=== PATIENT | female | born 1970 | race Caucasian/White ===

== ENCOUNTER 2024-09-10 13:02 | Outpatient (AMB) | payer OTHER, SELFPAY ==
--- NOTE | 2024-09-10 13:05 | A.SPINEOV_ITS ---
Vital Signs 09/10/24 13:08 Height 5 ft 4 in Weight 185 lb BMI 31.8 Intake Visit Reasons: SI Joint Dysfuction Intake Note: Ms. Snider is here today c/o low back pain. MRI Done at [facility] [facility]. Rag Sorter Required: No Allergies No Known Allergies Allergy (Verified 09/10/24 13:08) Physical Exam Vital Signs: BMI result Body Mass Index 31.8 Assessment & Plan Assessment & Plan (1) SI (sacroiliac) joint dysfunction: Code(s): M53.3 - Sacrococcygeal disorders, not elsewhere classified Category: Medical Plan Dear colleague, Thank you for referring Zena to our office today. She is a pleasant 54-year-old female who comes in today for evaluation of bilateral sacroiliitis. She has had SI joint injections in the past on 06/13/2023 which provided 70% relief of pain, and most recently on September 06 which she reports only alleviated about 20% of her pain. She states that her pain is well localized to her low ba ck and does not radiate down her legs. She does report some occasional numbness and tingling in her lower extremities but reports this is her baseline due to diagnosis of multiple sclerosis. She states that her pain is worse when sitting, and better with lying on her side with a pillow between her legs. She also reports that certain positional changes such as getting up out of a car seat exacerbate her pain. She does have a pertinent past medical history of 2 natural childbirths 30 and 25 years ago respectively. She has tried several xdlr-xmj-vnytunj medications in an effort to help mitigate this pain including lidocaine patches, Tylenol, ibuprofen without significant symptom relief. She has tried physical therapy in the past but she would not find was helpful for her. PMH: Multiple sclerosis temporomandibular joint dysfunction, major depression, generalized anxiety, insomnia, plantar fasciitis, heel spurs, chronic fatigue and chronic pain. History of cholecystectomy, bunionectomy, lumpectomy, carpal tunnel release 2016, hiatal hernia repair, gastric sleeve surgery. Social hx: The patient does not smoke, reports recreational cannabis use. Medications: Dimethyl fumarate, gabapentin, vitamin D3, B2, baclofen, escitalopram, magnesium oxide, modafinil. Allergies: NKDA. Physical exam: The patient has 5/5 strength in her upper and lower extremities. She ambulates well without any assistive devices. Her gait is nonantalgic and non spastic. She has no significant sensational deficits on exam. Her reflexes are 2+ intact diffusely. (-) Corrie finger test, (-) Karen's, (-) bilateral straight leg raise, (-) Leon's, (-) clonus. Imaging review: MRI of the pelvis completed at [place] shows mild tendinopathy of the right proximal hamstring. No lumbar MRI completed. Impression: Zena is a pleasant 54-year-old female who comes in today with a chief complaint of longstanding low back pain. She is being actively treated for bilateral SI joint dysfunction by our colleagues in [facility]. She does not have a previous lumbar MRI for review. I did check her [facility] imaging list which only shows several different cervical and thoracic MRIs likely to track her multiple sclerosis progression. Unfortunately, she does not appear to be a good candidate for SI joint fusion at this time. She is had 2 series of injections, 1 providing 70% relief and 1 presenting 20% relief. Typically for insurance approval for SI joint fusion the patient's have to have 3 series of full therapeutic dose injections showing 70% or more relief of pain. Given this, I would like to send her for an MRI of the lumbar spine to evaluate for any nerve impingement that may be contributing to her symptoms. If her MRI does show nerve impingement I will see her back in clinic to discuss potential surgical interventions. If it does not I will call and update her regardless. Thank you for allowing us to care for your patient. The total time spent with this visit with this patient was 45 minutes reviewing history, physical exam, MRI imaging review, and implementation of treatment plan or further diagnostic testing Veto Chavarria MD,PhD [facility] Orders: Orders MR lumbar spine wo con Today M53.3 - Sacrococcygeal disorders, not elsewhere classified Coding Level of Care Code New Pt Level 4 (50176) Diagnoses SI (sacroiliac) joint dysfunction M53.3
[2024-09-10 13:08] VITALS: BMI 31.8
--- OUTSIDE RECORDS SUMMARY | 2024-09-10 14:21 | XMS_ITS ---
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 Generated for Luna kraft/Tesha/eTransmitting on:?09/10/2024 02:21 PM EDT
--- OUTSIDE RECORDS SUMMARY | 2024-09-10 14:21 | XMS_ITS | Patient Health Record ---
Author Organization [facility] Address [address] [place] [address] Care Team Providers Care Machine Sander Name Role Phone Cintia Garcia Unavailable [phone] Reason For Referral No Information Encounters Encounter Location Date Provider [facility] [address] [place] [address] 07/10/2024 Cintia Garcia [facility] [address] [place] [address] 08/14/2024 Cintia Garcia Plan Of Treatment No Information Insurance Providers Payer Name Payer Address Payer Phone Subscriber Number Group Number Insured Name Patient Relationship to Insured Coverage Start Date Coverage End Date [facility] [place] [employer] Claims [address] [place] [id number] Zena Snider Self - patient is the insured
--- OUTSIDE RECORDS SUMMARY | 2024-09-10 14:22 | XMS_ITS | Data Portability ---
Author Organization [place] - [facility],, SUSY JIMENEZ MD Address [address] [facility] [address] [place] [address] Care Team Providers Care Drywaller Name Role Phone SEE JONES Primary Care Provider [phone] Assessment No assessment recorded. Plan of Treatment Reminders Order Date Submit Date Provider Last Modified By Organization Details Last Modified Time Details Appointments None recorded. Lab pap test, thinprep, cervical [address] [facility], [address], [place], [address], 8 15:14:12 fecal occult blood, stool 2017 018 MAURA In-Office Order, Internal Use Only DO Not Attach Compendium DO Not Attach Compendium, Do Not Delete/merge, [id number] 8 15:51:11 biopsy, endometri al 2016 017 MAURA [facility] (Centralized Electronic Ordering - All Locations), Patient Can Go To The Location Of Their Choice, [id number] 7 08:30:52 pap test, thinprep, cervical 2016 017 MAURA [facility] (Centralized Electronic Ordering - All Locations), Patient Can Go To The Location Of Their Choice, [id number] 7 13:30:44 fecal occult blood, stool 2016 017 [email or web address] 1 In-Office Order, Internal Use Only DO Not Attach Compendium DO Not Attach Compendium, Do Not Delete/merge, [id number] 7 13:49:01 pap test, thinprep, cervical 2015 016 [place] [facility] (Centralized Electronic Ordering - All Locations), Patient Can Go To The Location Of Their Choice, [id number] 6 12:34:35 fecal occult blood, stool 2015 016 [email or web address] 1 In-Office Order, Internal Use Only DO Not Attach Compendium DO Not Attach Compendium, Do Not Delete/merge, [id number] 6 14:35:08 pap test, thinprep, cervical 2014 015 [facility], Cytopathology Service, [address] [place], [address], 5 11:31:51 chlamydia sp, culture, unspecifi ed specimen 2014 015 [facility], Cytopathology Service, [address] [place], [address], 5 07:33:35 NG DNA, PCR, genital 2014 015 [facility] [address] [place], [address], 5 08:01:09 CBC w/ auto diff 2014 015 [employer] [facility], [address] [place], [address], 5 08:26:00 testoster one, free + total, serum 2014 015 [facility], [address] [place], [address], 5 08:01:09 TSH, serum or plasma 2014 015 [employer] [facility], [address] [place], [address], 5 08:26:00 FSH (follicle -stimulat ing hormone), serum 2014 015 [employer] [facility], [address] [place], [address], 5 08:26:01 estradiol , serum 2014 015 [employer], [address] [place], [address], 5 08:26:00 fecal occult blood, stool 2014 015 [employer] In-Office Order, Internal Use Only DO Not Attach Compendium DO Not Attach Compendium, Do Not Delete/merge, [id number] 5 08:26:00 Referral None recorded. Procedures biopsy, endometri um (PROC) 2016 017 MAURA In-Office Order, Internal Use Only DO Not Attach Compendium DO Not Attach Compendium, Do Not Delete/merge, [id number] 7 15:44:18 Surgeries None recorded. Imaging MAMMO, screening , digital, bilateral 2017 018 [facility], [address], [place], [address], 9 07:55:43 MAMMO, screening , digital, bilateral 2016 017 [facility], [address], [address], [place], [address], 8 07:43:47 US, pelvis, transabdo danny + transvagi nal - 2 months of midline suprapubi c cramping pain. Prior history of breast cancer, presently in chemopaus e. Please assess for polyp or thickenin g of endometri um. [address] [facility], [address], [address], [place], [address], 7 15:32:45 US, liver - elevated LFT. PAtient has prior history of breast cancer, on Tamoxifen . Also on Avonex, meds for MS. Prior cholecyst ectomy. 2016 017 [email or web address] [facility], [address], [address], [place], [address], 7 07:35:06 MAMMO, screening , digital, bilateral [address] [facility], [address], [address], [place], [address], 7 11:05:50 ultrasoun d, breast - 8 mm cystic density right breast at the 8 o'clock 5 cm from nipple 2014 015 [email or web address] [facility], [address], [address], [place], [address], 5 07:24:12 MAMMO, diagnosti c, digital, bilateral - 8 mm cystic density right breast at the 8 o'clock 5 cm from nipple [address] [facility], [address], [address], [place], [address], 5 13:45:14 Medication Orders None recorded. Patient TargetsNo targets recorded. Patient Instructions Encounter Date Encounter Id Patient Instructions Last Modified By Organization Details Last Modified Time 09/06/2014 [id number] secondary amenorrhea: care instructions [email or web address] Not available 09/09/2014 08:26:00 LPS 08/20=Negativ e (per pt), Mammo 02/18@ Edna She is here as a new patient, for annual exam.? ? ? She has had amenorrhea for the past two years. She had her last menses in 02/2013, she had one day of spotting in 2013 and one day of spotting earlier this year, , she does have monthly cramping discomfort, but no bleeding. Menses used to be regular every month until 2012. She has MS and takes a weekly injection, it is working well. She is from her son's father and is now in a same gender relationship, is happy and content with her partner. She saw Dr. Teran recently, for incontinence, pressure, constantly voiding and can't empty my bladder.. She has 2 years of amenorrhea, check cbc, tsh, testosterone total and free, FSH and estradiol to see if premature ovarian failure or not, and then manage as appropriate.? ? ? Issues discussed, she is aware. She has not had a mammo since 02/2013, she has an 8 mm density? ? ?in the? ? ?right breast, 8 mm cystic density right breast at the 8 o'clock 5 cm from nipple, will send for right breast sonogram and also bilateral digital diagnostic mammogram, and follow up as appropriate. She appears to be doing well. She is advised to get 1500 mg of calcium daily into her diet and supplements combined. There is a health benefit with adequate vitamin D supplementation to at least 400 units daily, daily aerobic exercise of 30 minutes, and stress reduction. Monthly self breast exam was taught, and stressed, and is advised to call if she discovers any new mass in the breast. ? ? ? Seat belt use for herself and passengers are advised. There are significant health benefits of becoming and remainig fit, with an optimal BMI. There is a potential reduction in chronic discomfort, diminished risks of hypertension, diabetes, and heart disease with the proper weight management. With a recommended BMI there can be improved mobility as she ages. Strategies to reach and maintain her target weight were discussed in detail. [email or web address] Not available 09/09/2014 08:26:01 09/23/2015 [id number] She is here for annual exam.? ? ? Last year she was seen as a new patient and a right breast mass was found, tesing showed it was a cancer and she had lumpectomy and chemo and RTx, last September. She had been referred here by Dr. Teran for routine care. She had Dr. Kirstin Dempsey as her surgeon. Stage 1 grade 3. She is BRCA negative. Unfortunately we did not receive any records for review and so all this is based on patient history. She did not have a flare of her MS, and one of her chemo meds treats MS and so she was off Avonex for a year, now back on. She is in a same gender relationship, supportive. She is presently ILIA. She is not having menses, is in chemopause, although she had relative amenorrhea prior to this, for a year or two. She appears to be doing well. She is advised to get 1500 mg of calcium daily into her diet and supplements combined. There is a health benefit with adequate vitamin D supplementation to at least 400 units daily, daily aerobic exercise of 30 minutes, and stress reduction. Monthly self breast exam was taught, and stressed, and is advised to call if she discovers any new mass in the breast. ? ? ? Seat belt use for herself and passengers are advised. There are significant health benefits of becoming and remainig fit, with an optimal BMI. There is a potential reduction in chronic discomfort, diminished risks of hypertension, diabetes, and heart disease with the proper weight management. With a recommended BMI there can be improved mobility as she ages. Strategies to reach and maintain her target weight were discussed in detail. We had a long discussion about issues of mortality, cancer survivorship, etc. This has been a tough year. She still dwells on the thought that this was a grade 3 lesion. She has not seen her therapist in a year. Her 15 year old son has been acting out, nearly flunked, stays out late, is belligerent.? ? ?We discussed that it would be great if she went back to see? ? ?her therapist? ? ?as she likes their talks, she will call today.? ? ? Also discussed the benefits of joining a survivors' group. Her LFTs are elevated, her neurologist had checked them, as her MS meds can cause this, she needs to call her PCP to let her know, she will call today. We had a long discussion about chemopause and whether her menses might return or not. Also we discussed issues of decreased vaginal lubriaction and libido, and remedies discussed. All questions answered. Not available 09/23/2015 14:35:08 10/19/2016 [id number] self breast exam education [email or web address] Not available 10/19/2016 15:17:13 She is here for annual exam, is doing well. She has a past history of breast cancer in 10/02/2014, She has had a right hip pain for the past months, she has seen her PCP and is getting a bone scan soon. She also recently saw her neurologist for her MS and he did liver function tests and advised her they are elevated, she is to have a sonogram of the liver soon. She noted midline pelvic cramping pain off and on for two months, suprapubic. She is in chemopause since 2014. She is taking Tamoxifen. Note from last year: She is here for annual exam. Last year she was seen as a new patient and a breast mass was found, tesing showed it was a cancer and she had lumpectomy and chemo and RTx, last September. She had been referred here by Dr. Teran for routine care. She had Dr. Kirstin Dempsey as her surgeon. Stage 1 grade 3. She is BRCA negative. She is in a same gender relationship, supportive. She is presently ILIA. We discussed that her pelvic cramping could be related to her body resolving chemopause, however she could also have a polyp within the endometrial cavity. Check pelvic sonogram. She had recently elevated LFT which could be related to MS meds, or weekly NSAID use, however with her prior history of breast cancer needs sonogram, one is ordered. Her PCP's office has been working since last week to get it set but she has not heard back yet so we just scheduled it for expediency. Also discussed possible use of milk thistle, she should run it by her PCP and oncologist first. She will follow up [facility] PCP concerning hip pain. She is aware that with hip pain and elevated LFT there is some concern about metastatic disease, she will follow up. She appears to be doing well. She is advised to get 1500 mg of calcium daily into her diet and supplements combined. There is a health benefit with adequate vitamin D supplementation to at least 400 units daily, daily aerobic exercise of 30 minutes, and stress reduction. Monthly self breast exam was taught, and stressed, and is advised to call if she discovers any new mass in the breast. Seat belt use for herself and passengers are advised. There are significant health benefits of becoming and remainig fit, with an optimal BMI. There is a potential reduction in chronic discomfort, diminished risks of hypertension, diabetes, and heart disease with the proper weight management. With a recommended BMI there can be improved mobility as she ages. Strategies to reach and maintain her target weight were discussed in detail. Not available 10/19/2016 15:13:23 11/25/2016 [id number] postmenopausal bleeding information [email or web address] Not available 11/25/2016 15:54:45 endometrial biop sy: about this test [email or web address] Not available 11/25/2016 15:54:45 She is here for emb to assess thickened endometrium of 8 mm in postmenopausal (chemopause) woman on sonogram. the test was done because of pelvic cramping pain. Note from last visit: She is here for annual exam, is doing well. She has a past history of breast cancer in 10/02/2014, She has had a right hip pain for the past months, she has seen her PCP and is getting a bone scan soon. She also recently saw her neurologist for her MS and he did liver function tests and advised her they are elevated, she is to have a sonogram of the liver soon. She noted midline pelvic cramping pain off and on for two months, suprapubic. She is in chemopause since 2014. She is taking Tamoxifen. She tolerated emb well, adequate sample, await results. Not available 11/25/2016 15:33:59 11/15/2017 [id number] multiple scleros is (MS): care instructions Not available 11/15/2017 15:12:00 She had a sonogr am showing an 8 mm endometrium last year, had an emb that showed atrophic endometrium, she has had no spotting. She still has occasional cramping off and on. She has MS, and a past history of breast cancer. Seh has not had a period since 2012, she had labs in 09/2014 that showed elevated estrogen and supressed FSH, she was given a progestin challenge test but did not have withdrawl bleeding. The emb in 2017 was atrophic, however. She is still takign Tamoxifen. Note from 2017: She is here for annual exam, is doing well. She has a past history of breast cancer in 10/02/2014, She has had a right hip pain for the past months, she has seen her PCP and is getting a bone scan soon. She also recently saw her neurologist for her MS and he did liver function tests and advised her they are elevated, she is to have a sonogram of the liver soon. She noted midline pelvic cramping pain off and on for two months, suprapubic. She is in chemopause since 2014. She is taking Tamoxifen. She appears to be doing well. We discussed that if they plan to switch to Arimidex after 5 years of tamoxifen then we should check FSH and estradiol first, this was explained and she understands. She is advised to get 1500 mg of calcium daily into her diet and supplements combined. We discussed the benefits of adequate vitamin D supplementation to at least 400 units daily, daily aerobic exercise of 30 minutes, and stress reduction. Monthly self breast exam was taught, and stressed, and is advised to call if she discovers any new mass in the breast. Seat belt use for herself and passengers advised. The significant health benefits of becoming and remainig fit, with an optimal BMI, were also discussed. We discussed the potential reduction in chronic discomfort, the diminished risks of hypertension, diabetes, and heart disease with the proper weight management, and improved mobility as she ages. Strategies to reach and maintain her target weight wer discussed in detail, all questions answered. Not available 11/15/2017 15:30:28 Reason for Referral None Reported. Results Created Date Observation Date Name Description Value Unit Range Abnormal Flag Note LastModifiedBy Organization Detail LastModifiedTime 10/20/1910/19/2016 fecal occul t blood , stool Occult Blood negati ve Not Available In-Office Order Internal Use Only DO Not Attach Compendium DO Not Attach Compendium, Do Not Delete/merge, [id number] 10/19/2016 13:23:40 09/23/19 16 09/23/2015 fecal occul t blood , stool Occult Blood negati ve Not Available In-Office Order Internal Use Only DO Not Attach Compendium DO Not Attach Compendium, Do Not Delete/merge, [id number] 09/23/2015 13:38:20 09/07/1909/06/2014 fecal occul t blood , stool Occult Blood negati ve Not Available In-Office Order Internal Use Only DO Not Attach Compendium DO Not Attach Compendium, Do Not Delete/merge, [id number] 09/06/2014 08:53:56 09/07/1909/06/2014 CBC w/ auto diff comments [facility] [address] [place] [address] [phone] Not Available [facility] [address] [place], [address], 09/07/2014 04:43:16 09/07/1909/06/2014 CBC w/ auto diff WBC 8.2 x10-3 4.8-10 .8 Not Available [facility] [address] [place], [address], 09/07/2014 04:43:16 09/07/1909/06/2014 CBC w/ auto diff RBC 4.5 x10-6 3.8-4. 8 Not Available [facility] [address] [place], [address], 09/07/2014 04:43:16 09/07/1909/06/2014 CBC w/ auto diff hemoglobin 12.4 g/dL 11.5-1 6.0 Not Available [facility] [address] [place], [address], 09/07/2014 04:43:16 09/07/1909/06/2014 CBC w/ auto diff hematocrit 39.0 % 35-47 Not Available [facility] [address] [place], [address], 09/07/2014 04:43:16 09/07/1909/06/2014 CBC w/ auto diff MCV 86.3 fL 79-98 Not Available [facility] [address] [place], [address], 09/07/2014 04:43:16 09/07/1909/06/2014 CBC w/ auto diff MCH 27.4 pg 27-32 Not Available [facility] [address] [place], [address], 09/07/2014 04:43:16 09/07/1909/06/2014 CBC w/ auto diff MCHC 31.8 g/dL 32-37 low Not Available [facility] [address] [place], [address], 09/07/2014 04:43:16 09/07/1909/06/2014 CBC w/ auto diff RDW 14.9 % 11-15 Not Available [facility] [address] [place], [address], 09/07/2014 04:43:16 09/07/1909/06/2014 CBC w/ auto diff plt count 363 x10-3 130-40 0 Not Available [facility] [address] [place], [address], 09/07/2014 04:43:16 09/07/1909/06/2014 CBC w/ auto diff mean platelet volume 10.7 fL 7-11 Not Available [facility] [address] [place], [address], 09/07/2014 04:43:16 09/07/1909/06/2014 CBC w/ auto diff neut % 59 % 41-85 Not Available [facility] [address] [place], [address], 09/07/2014 04:43:16 09/07/1909/06/2014 CBC w/ auto diff lymph % 34 % 15-48 Not Available [facility] [address] [place], [address], 09/07/2014 04:43:16 09/07/1909/06/2014 CBC w/ auto diff mono % 6 % 0-12 Not Available [facility] [address] [place], [address], 09/07/2014 04:43:16 09/07/1909/06/2014 CBC w/ auto diff eos % 1 % 0-5 Not Available [facility] [address] [place], [address], 09/07/2014 04:43:16 09/07/1909/06/2014 CBC w/ auto diff baso % 0 % 0-2 Not Available [facility] [address] [place], [address], 09/07/2014 04:43:16 09/07/1909/06/2014 CBC w/ auto diff absolute neut 4.8 X10-3 /uL >1.5 Not Available [facility] [address] [place], [address], 09/07/2014 04:43:16 09/07/1909/06/2014 estra diol, serum comments [facility] [address] [facility] [place] [address] [phone] Not Available [facility] [address] [place], [address], 09/07/2014 04:44:17 09/07/1909/06/2014 estra diol, serum estradiol 174.8 pg/mL Estra diol Refer ence Range s Menst ruati ng Femal es (by day in cycle relat mag to LH peak) Folli cular Phase (-12 to -4) 19.5 - 144.2 Midcy tuan (-3 to +2) 63.9 - 356.7 Lutea l Phase (+4 to +12) 55.8 - 214.2 Postm enopa usal femal es Untre ated ND - 118.2 Not Available [facility] [address] [place], [address], 09/07/2014 04:44:17 09/07/19 15 09/06/2014 FSH (foll icle- stimu latin g hormo ne), serum comments [facility] [address] [facility] [place] [address] [phone] Not Available [facility] [address] [place] [address], [address], 09/07/2014 04:44:19 09/07/19 15 09/06/2014 FSH (foll icle- stimu latin g hormo ne), serum follicle stimulating hormone 2.7 mIU/m L FSH REFER ENCE RANGE S (MIU/ ML) FEMAL ES ZHENG LLY MENST RUATI NG: FOLLI CULAR PHASE 1.1 - 9.6 MIDCY TUAN PEAK 2.3 - 20.9 LUTEA L PHASE 0.8 - 7.5 PREGN ANT 0.0 - 0.9 POSTM ENOPA USAL 34.4 - 95.8 CONTR ACEPT LACEY 1.5 - 16.1 OVARI AN FAILU RE 11.5 - 91.1 CHILD MANUEL 1.2 - 7.8 Not Available [facility] [address] [place] [address], [address], 09/07/2014 04:44:19 09/07/19 15 09/06/2014 testo stero ne, total , serum comments [facility] [address] [facility] [address] [place], [place] [address] [phone] Not Available [facility] [address] [place] [address], [address], 09/07/2014 04:45:20 09/07/19 15 09/06/2014 testo stero ne, total , serum testosterone 47 NG/dL 14-76 Not Available [facility] [address] [place] [address], [address], 09/07/2014 04:45:20 09/07/19 15 09/06/2014 TSH, serum or plasm a comments [facility] [address] [facility] [place] [address] [phone] Not Available [facility] [address] [place], [address], 09/07/2014 04:45:20 09/07/19 15 09/06/2014 TSH, serum or plasm a TSH 3.95 uIU/m L 0.40-4 .00 Not Available [facility] [address] [place], [address], 09/07/2014 04:45:20 09/07/19 15 09/06/2014 gener al5ca se [id number] RESUL TS OF GEN-P ROBE APTIM A COMBO 2 ASSAY Chlam ydia: NEGAT MAG N. gonor rhoea e: NEGAT MAG VICTOR MMAURIZOI GARCIA M.D., Patho logis t (Case elect jose angel torres madelaine d 09 10 2014) [facility]: LPS 1 YR = NEG SOURC E: ThinP rep Pap for CT/GC Gross Descr iptio n: ThinP rep Vial Recei miguelito. Physi cians KAYLYNN PALMER N /#[phone]/2 [id number] [phone] Cytop athol ogy servi kisha provi ded by Vignesh Hart nd Patho logCiera Romeo at the above addre ss. Not Available [facility], Cytopathology Service [address] [place], [address], 09/10/2014 15:21:33 09/07/19 15 09/06/2014 testo stero ne, free, serum comments [facility] [address] [place] [address] [phone] Not Available [facility] [address] [place], [address], 09/11/2014 06:00:16 09/07/19 15 09/06/2014 testo stero ne, free, serum free testosterone 2.6 pg/mL 0.0-7. 0 Not Available [facility] [address] [place], [address], 09/11/2014 06:00:16 09/07/19 15 09/06/2014 pap, LB [id number] ThinP rep Pap, Image d: NEGAT MAG FOR SQUAM OUS INTRA EPITH ELIAL LESIO N AND CAROLYN JOSE ARMANDO . Ani Tapia ams, CT( CP) (Case elect jose angel torres madelaine d 09 11 2014) ADEQU ACY: Satis facto ry. Endoc ervic al/tr ansfo rmati on zone compo nent prese nt. SOURC E: ThinP rep Pap, Cervi prince, Image d [facility] N: HPV If Diagn osis of ASCUS . lps 1 yr ago neg * Cytop athol ogy servi kisha provi ded by [facility] at the above addre ss. Not Available [facility], Cytopathology Service [address] [facility], [place], [address], 09/11/2014 11:31:51 11/16/19 18 11/15/2017 fecal occul t blood , stool Occult Blood negati ve Not Available In-Office Order Internal Use Only DO Not Attach Compendium DO Not Attach Compendium, Do Not Delete/merge, [id number] 11/15/2017 15:00:24 09/18/19 15 09/17/2014 MAMMO , diagn ostic , digit al, bilat eral No observ ation record ed. [facility] [address], [place], [address], 09/24/2014 08:07:00 09/18/19 15 09/17/2014 MAMMO , diagn ostic , digit al, bilat eral No observ ation record ed. [facility] Orders [address], [place], [address], 09/24/2014 08:07:00 09/18/19 15 09/17/2014 MAMMO , diagn ostic , digit al, bilat eral No observ ation record ed. [facility] Orders [address], [place], [address], 09/24/2014 08:07:01 09/18/19 15 09/17/2014 MAMMO , diagn ostic , digit al, bilat eral No observ ation record ed. [address] [facility] Orders [address], [place], [address], 09/17/2014 15:09:04 09/18/19 15 09/17/2014 MAMMO , diagn ostic , digit al, bilat eral No observ ation record ed. [address] [facility] Orders [address], [place], [address], 09/17/2014 15:09:04 09/24/19 15 09/23/2014 needl e core biops y, breas t, ultra sound guide d No observ ation record ed. [address] [facility] [address], [place], [address], 09/23/2014 15:49:59 09/24/19 15 09/23/2014 imagi ng/di agnos tic resul t No observ ation record ed. [address] [facility] [address], [place], [address], 09/23/2014 15:50:00 10/02/19 15 09/23/2014 ultra sound , breas t No observ ation record ed. [address] [facility] Orders [address], [place], [address], 10/01/2014 15:40:48 09/18/19 17 10/10/2015 MAMMO , scree chuy, digit al, bilat eral No observ ation record ed. [address] (Imaging) [address], [place], [address], 09/17/2016 11:11:00 10/28/19 17 10/27/2016 US, pelvi s, trans abdom inal + trans vagin al No observ ation record ed. [facility] [address], [place], [address], 10/29/2016 07:24:17 10/28/19 17 10/27/2016 US, pelvi s, trans abdom inal + trans vagin al No observ ation record ed. [email or web address] Not Available 2016 11:52:29 10/28/19 17 10/27/2016 US, pelvi s, trans abdom inal + trans vagin al No observ ation record ed. [facility] (Out[facility]) [address] , [place], [address], 10/28/2016 11:30:03 10/30/19 17 10/27/2016 US, pelvi s, trans abdom inal + trans vagin al No observ ation record ed. [facility] Orders [address], [place], [address], 10/29/2016 13:30:44 11/02/19 18 11/01/2017 MAMMO , scree chuy, digit al, bilat eral No observ ation record ed. [facility] [address], [place], [address], 11/07/2017 07:56:18 Result Notes None recorded. Problems Name Problem SNOMED Code Status Onset Date Resolution Date Notes Provider Name and Address Organization Details Recorded Time Amenorrhea 45547088 Active Susy Jimenez MD [address] [facility],[address], [place], [address], [place] [facility], 6 14:05:48 Breast lump 49890435 Active Susy Jimenez MD [address], [place], [address], [place] [facility], 6 14:05:48 Multiple sclerosis 25383359 Active Susy Jimenez MD [address] [facility],[address], [place], [address], [place] [facility], 6 14:05:48 Mammography abnormal 458152199 Active Susy Jimenez MD [address], [place], [address], [place] [facility], 6 14:05:48 Malignant tumor of breast 322386840 Active 2016 [place] [facility], 7 15:29:39 History of malignant neoplasm of breast 098254810 Active 2017 Susy Jimenez MD [address], [place], [address], [place] [facility], 8 15:10:38 Problem Notes None recorded. Procedures Surgical History Date Name Laterality Status Provider Name and Address Organization Details Recorded Time 11/26/19 17 Endometrial Biopsy completed Susy Jimenez MD [address], [place], [address], [place] [facility], 11/25/2016 15:32:28 05/09/19 15 Breast Biopsy completed Malka Jones in [facility], 09/23/2015 13:37:20 05/09/19 15 Other completed Malka Jones in [facility], 09/23/2015 13:37:20 05/09/19 04 Other completed Malka Jones in [facility], 09/23/2015 13:37:20 05/09/19 00 Cholecystectomy completed Philomena Jones in [facility], 09/06/2014 08:49:23 Imaging Results Imaging Date Name Status LastModified by Organization Details LastModified Time 09/17/2014 MAMMO, diagnostic, digital, bilateral completed [facility] [address] [facility] [address], [place], [address], 09/24/2014 08:07:00 09/17/2014 MAMMO, diagnostic, digital, bilateral completed [facility] Orders [address], [place], [address], 09/24/2014 08:07:00 09/17/2014 MAMMO, diagnostic, digital, bilateral completed [facility] Orders [address], [place], [address], 09/24/2014 08:07:01 09/17/2014 MAMMO, diagnostic, digital, bilateral completed [address] [facility] [address], [place], [address], 09/17/2014 15:09:04 09/17/2014 MAMMO, diagnostic, digital, bilateral completed [address] [facility] [address], [place], [address], 09/17/2014 15:09:04 09/23/2014 needle core biopsy, breast, ultrasound guided completed [address] [facility] [address], [place], [address], 09/23/2014 15:49:59 09/23/2014 imaging/diagnostic result completed [address] [facility] [address], [place], [address], 09/23/2014 15:50:00 09/23/2014 ultrasound, breast completed [address] [facility] Orders [address], [place], [address], 10/01/2014 15:40:48 10/10/2015 MAMMO, screening, digital, bilateral completed [address] (Imaging) [address] [facility], [place], [address], 09/17/2016 11:11:00 10/27/2016 US, pelvis, transabdominal + transvaginal completed [facility] [address], [place], [address], 10/29/2016 07:24:17 10/27/2016 US, pelvis, transabdominal + transvaginal completed [email or web address] Information not available 11/18/2016 11:52:29 10/27/2016 US, pelvis, transabdominal + transvaginal completed [facility] ([facility]) [address], [place], [address], 10/28/2016 11:30:03 10/27/2016 US, pelvis, transabdominal + transvaginal completed [facility] Orders [address], [place], [address], 10/29/2016 13:30:44 11/01/2017 MAMMO, screening, digital, bilateral completed [facility] [address], [place], [address], 11/07/2017 07:56:18 Procedure Notes None recorded. Medical Equipment None Reported. Allergies Allergen ID Allergen Name Allergen Category Reaction Reaction Severity Criticality Documentation Date Start Date Code Code System Note Provider Name and Address Organization Details Recorded Time 19234 Tegaderm medicatio n Not available Not available Not available 09/23/2015 87297 CHETNA mittal [place] [facility], 6 13:37:20 Medications Name Sig Start Date Stop Date Status Note LastModified by Organization Details LastModified Time nystat/lido ca/cvs an/diphen SWISH AND SWALLOW 10ML BY MOUTH EVERY 2 HOURS NEEDED FOR MOUTH SORE PAIN 10/19 completed Not Available Not Available Not Available cyclobenzap rine 10 mg tablet 10/19 completed Not Available Not Available Not Available amoxicillin 500 mg capsule 11/15 completed Not Available Not Available Not Available medroxyprog esterone 10 mg tablet active Not Available Not Available No t Available fluconazole 100 mg tablet active Not Available Not Available Not Available methocarbam ol 500 mg tablet 10/19 completed Not Available Not Available Not Available silver sulfadiazin e 1 % topical cream 10/19 completed Not Available Not Available Not Available naproxen 375 mg tablet active Not Available Not Available Not Available loperamide 2 mg capsule 11/15 completed Not Available Not Available Not Available azithromyci n 250 mg tablet 10/19 completed Not Available Not Available Not Available ofloxacin 0.3 % eye drops active Not Available Not Available Not Available hydrocodone 5 mg-acetamin ophen 325 mg tablet 10/19 completed Not Available Not Available Not Available ondansetron HCl 8 mg tablet 11/15 completed Not Available Not Available Not Available prednisone 20 mg tablet 10/19 completed Not Available Not Available Not Available medroxyprog esterone 5 mg tablet Take 1 tablet every day by oral route for 10 days. 10/19 completed Not Available Not Available Not Available promethazin e 6.25 mg-codeine 10 mg/5 mL syrup TAKE 1 TEASPOONF UL BY MOUTH EVERY 4 TO 6 HOURS NEEDED FOR COUIGH 10/19 completed Not Available Not Available Not Available prochlorper azine maleate 10 mg tablet 10/19 completed Not Available Not Available Not Available ciprofloxac in 500 mg tablet active Not Available Not Available Not Available oxycodone-a cetaminophe n 5 mg-325 mg tablet active Not Available Not Available No t Available amoxicillin 875 mg tablet 11/15 completed Not Available Not Available Not Available modafinil 200 mg tablet active Not Available Not Available Not Available Antacid Anti-Gas 200 mg-200 mg-20 mg/5 mL oral suspension 10/19 completed Not Available Not Available Not Available amitriptyli ne 10 mg tablet active Not Available Not Available Not Available benzonatate 100 mg capsule 11/15 completed Not Available Not Available Not Available cephalexin 500 mg capsule active Not Available Not Available Not Available dexamethaso ne 4 mg tablet active Not Available Not Available Not Available oxybutynin chloride ER 5 mg tablet,exte nded release 24 hr active Not Available Not Available Not Available omeprazole 20 mg capsule,del ayed release active Not Available Not Available Not Available codeine 10 mg-guaifene sin 100 mg/5 mL oral liquid 11/15 completed Not Available Not Available Not Available ranitidine 150 mg capsule active Not Available Not Available Not Available levofloxaci n 500 mg tablet active Not Available Not Available Not Available methylpredn isolone 4 mg tablets in a dose pack 11/15 completed Not Available Not Available Not Available fluticasone propionate 50 mcg/actuati on nasal spray,suspe nsion active Not Available Not Available Not Available tamoxifen 20 mg tablet TAKE 1 TABLET BY MOUTH EVERY DAY active Not Available Not Available No t Available oxycodone 5 mg tablet active Not Available Not Available No t Available modafinil 100 mg tablet Take 2 tablets every day by oral route. 11/15 completed Not Available Not Available Not Available Vitamin D3 25 mcg (1,000 unit) capsule Take by oral route. 10/19 completed Not Available Not Available Not Available cyclobenzap rine 5 mg tablet 10/19 completed Not Available Not Available Not Available chlorhexidi ne gluconate 0.12 % mouthwash 10/19 completed Not Available Not Available Not Available melatonin active Not Available Not Janeth ilable Not Available biotin 10/19 completed Not Available Not Available Not Available ProAir HFA 90 mcg/actuati on aerosol inhaler TAKE 2 PUFFS EVERY 4 HOURS NEEDED FOR WHEEZE FOR 7 DAYS 10/19 completed Not Available Not Available Not Available cholecalcif marlene (vitamin D3) 1,250 mcg (50,000 unit) capsule TAKE 1 CAPSULE BY MOUTH EVERY WEEK active Not Available Not Available No t Available Adacel (Tdap Adolesn/Miguel lt)(PF)2 Lf-(2.5-5-3 -5)-5 Lf/0.5 mL IM syringe TO BE ADMINISTE RED BY PHARMACIS T FOR IMMUNIZAT ION active Not Available Not Available No t Available Daily Multiple For Women 50+ active Not Available Not Available Not Available Avonex 30 mcg/0.5 mL intramuscul ar pen kit active Not Available Not Available N ot Available ProAir RespiClick 90 mcg/actuati on breath activated TAKE 2 PUFFS EVERY 4 HOURS NEEDED FOR WHEEZE AND COUGH active Not Available Not Available No t Available Fluarix Quad (PF) 60 mcg (15 mcg x 4)/0.5 mL IM syringe TO BE ADMINISTE RED BY PHARMACIS T FOR IMMUNIZAT ION active Not Available Not Available No t Available Fluarix Quad (PF) 60 mcg (15 mcg x 4)/0.5 mL IM syringe TO BE ADMINISTE RED BY PHARMACIS T FOR IMMUNIZAT ION active Not Available Not Available No t Available Vitals Date Recorded Body height Body mass index (BMI) Body weight Heart rate Systolic blood pressure Diastolic blood pressure Provider Name and Address Organization Details Last Updated DateTime 8 165.1 cm 34.6 kg/m2 63046.2 1 g 68 /min 136 mm[Hg] 80 mm[Hg] Malka Jones in [facility], 8 14:52:08 Date Recorded Heart rate Body weight Body mass index (BMI) Body height Systolic blood pressure Diastolic blood pressure Provider Name and Address Organization Details Last Updated DateTime 5 70 /min 434448. 26132 g 38.2 kg/m2 164.465 cm 137 mm[Hg] 71 mm[Hg] Philomena Matthewscarlos Jones in [facility], 5 08:41:36 Date Recorded Body weight Body mass index (BMI) Body height Provider Name and Address Organization Details Last Updated DateTime 09/23/2015 221664.5310 72 g 37.5 kg/m2 165.1 cm Malka Jones in [facility], 09/23/2015 13:37:20 Date Recorded Body weight Body mass index (BMI) Body height Heart rate Systolic blood pressure Diastolic blood pressure Provider Name and Address Organization Details Last Updated DateTime 7 330680. 68 g 38.3 kg/m2 165.1 cm 74 /min 150 mm[Hg] 79 mm[Hg] Malka Jones in [facility], 7 13:11:38 Date Recorded Body height Body mass index (BMI) Body weight Heart rate Systolic blood pressure Diastolic blood pressure Provider Name and Address Organization Details Last Updated DateTime 7 165.1 cm 38 kg/m2 437399. 78 g 69 /min 138 mm[Hg] 69 mm[Hg] Malka Jones in [facility], 7 15:08:30 Social History Question Answer Notes LastModified by Organizat ion Details LastModified Time Tobacco Smoking Status Never Smoker Not Available [employer] 03/11/2020 03:19:40 What Is Your Level Of Alcohol Consumption? Occasional [id number] Information not available 03/11/2020 What Is Your Level Of Caffeine Consumption? Occasional [id number] Information not available 03/11/2020 What Type Of Diet Are You Following? REGULAR [id number] Information not available 03/11/2020 Which Illicit Or Recreational Drugs Have You Used? None [id number] Information not available 03/11/2020 Do You Reside In Or Have You Traveled To An Area Where Ebola Virus Transmission Is Active? No [id number] Information not available 03/11/2020 Education 12 [email or web address] Information no t available 09/06/2014 What Is Your Occupation? [employer] [id number] Information not available 03/11/2020 How Many Days In The Past Year Have You Had A Heavy Drinking Consumption (4+ Female, 5+ Male)? 4 Information no t available 11/15/2017 High Number Of Sexual Partners No Information not available 10/19/2016 To Which Gender Do You Self-identify? Female Information not available 10/19/2016 Marital Status Single siltorski Informatio n not available 09/06/2014 What Was The Date Of Your Most Recent Tobacco Screening? 11/15/2017 [id number] Information not available 03/11/2020 Are You Sexually Active? Yes [id number] Information not available 03/11/2020 How Much Tobacco Do You Smoke? No [id number] Information not available 03/11/2020 General Stress Level High Information not available 10/19/2016 How Many Years Have You Smoked Tobacco? 0 [id number] Information not available 03/11/2020 Have You Recently (within The Last 12 Weeks, Or During A Current ) Traveled To Or Lived In A Zika-affected Area? No Information not available 10/19/2016 Sex: Unknown Functional Status Question Answer Note LastModified by Organization D etails LastModified Time What is your exercise level? None [id number] Information not available 03/11/2020 Mental Status None recorded. Family History Relationship Description Onset Age of this Age Resolved Age Notes LastModified by Organization Details LastModified Time Father Malignant hypertension Not available 0 09/23/2015 13:49:55 Mother Alzheimer's disease Not available 09/06 13:49:55 Medical History Condition Response High Blood Pressure N Autoimmune Condition N Depression N History of Ovarian Cancer N Anxiety Disorder N Arthritis N Infertility N Kidney or Bladder Problems N Osteopenia N Asthma N Hepatitis N Anesthesia complications N Candidate for MyRisk panel N Lung Disease N Defects or Inherited Disease N BRCA testing in past Y History of Cancer N Endometriosis N Thyroid Problems N GI Problems N Anemia N History of Breast Cancer Y VERONICA exposure N Psychiatric Illness N Diabetes N Headaches or Migraines Y Heart Disease N Hypertension N Osteoporosis N Gynecological History Statement/Question Response Menses Monthly N Age at Menarche 10 Age at First Child 24 Date of LMP 02/25/2013 Obstetrics History GPAL:G 2 P 2 0 0 2 Type Value Full Term 2 Living 2 Total 2 Immunizations Vaccine Type Date Status Note Provider Nam e and Address Organization Details Recorded Time Influenza, split virus, trivalent, preservative 4 completed IGOR Dogulas in [facility], 09/06/2014 08:45:16 Influenza, split virus, trivalent, preservative 5 completed IGOR Linares in [facility], 09/23/2015 13:37:20 Influenza, split virus, quadrivalent, preservative 6 completed IGOR [place] in [facility], 10/19/2016 13:15:34 Influenza, split virus, quadrivalent, preservative 7 completed IGOR [place] in [facility], 11/15/2017 14:57:11 Tdap 7 completed IGOR [place] in [facility], 11/15/2017 14:57:30 Past Encounters Encounter ID Performer Location Encounter Start Date Encounter Closed Date Diagnosis/Indication Diagnosis SNOMED-CT Code Diagnosis ICD10 Code Diagnosis Note [id number] MD SUSY Carbajal MD [address] [facility] [address] [place] [address] 09/06/2014 08:30:20 09/06/2014 14:04:04 Specialized medical examination 48303263 Screening for malignant neoplasm of rectum 119453449 Screening mammography 91831689 Amenorrhea 20248413 Breast lump 01865553 Multiple sclerosis 57304150 [id number] MD SUSY Carbajal MD [address] [place] [address],[address] [place] [phone] 09/23/2015 13:18:44 09/23/2015 15:52:27 Specialized medical examination 62262771 Z01.419 Screening for malignant neoplasm of rectum 046154138 Z12.12 Screening mammography 24 652130 Z12.31 [id number] MD SUSY Carbajal MD [address] [place] [address], [address] [place] [phone] 10/19/2016 13:04:30 10/19/2016 15:30:13 Specialized medical examination 31934858 Z01.419 Screening for malignant neoplasm of rectum 173562782 Z12.12 Screening mammography 24 385237 Z12.31 Pain in pelvis 89631067 R10.2 Liver func tion tests outside reference range 055585116 R94.5 [id number] MD SUSY Carbajal MD [address] [place] [address], [address] [place] [phone] 11/25/2016 15:04:32 11/25/2016 15:47:49 Endometrium thickened 047569247 R93.8 [id number] MD SUSY Carbajal MD [address] [place] [address], [address] [place] [phone] 11/15/2017 14:47:40 11/15/2017 15:47:52 Specialized medical examination 08040256 Z01.419 Screening for malignant neoplasm of rectum 884097743 Z12.12 Screening mammography 24 042533 Z12.31 Multiple sclerosis 00803 007 G35 History of malignant neoplasm of breast 520013199 Z85.3 Health Concerns Section Related Observation LastModified by Organization Detai ls LastModified Time None Recorded Concern Status LastModified by Organization Details LastModified Time None Recorded Advance Directives Directive None Recorded Payers Encounter Date Sequence Insurance Name Policy Number Policy Lomeli Covered Member ID Lomeli Member ID Guarantor Name 09/06/2014 1 [facility] [id number] Zena Mcbain [id number] Zena Agatha 09/23/2015 1 [facility] [id number] Zena Agatha [id number] Zena Mcbain 10/19/2016 1 [facility] [id number] Zena Mcbain [id number] Zena Agatha 11/25/2016 1 [facility] [id number] Zena Mcbain [id number] Zena Mcbain 11/15/2017 1 [facility] [id number] Zena Mcbain [id number] Zena Mcbain Notes Date Note Type Note Provider Name and Address Organization Details Recorded Time 10/19/2016 text/html She is here for annual exam, is doing well. She has a past history of breast cancer in 10/02/2014, She has had a right hip pain for the past months, she has seen her PCP and is getting a bone scan soon. She also recently saw her neurologist for her MS and he did liver function tests and advised her they are elevated, she is to have a sonogram of the liver soon. She noted midline pelvic cramping pain off and on for two months, suprapubic. She is in chemopause since 2014. Note from last year: She is here for annual exam. Last year she was seen as a new patient and a breast mass was found, tesing showed it was a cancer and she had lumpectomy and chemo and RTx, last September. She had been referred here by Dr. Teran for routine care. She had Dr. Kirstin Dempsey as her surgeon. Stage 1 grade 3. She is BRCA negative. She is in a same gender relationship, supportive. She is presently ILIA. Susy Jimenez MD [address] [facility],[address], [place], [address], [place] [facility], 10/19/2016 15:13:53 11/25/2016 text/html She is here for emb to assess thickened endometrium of 8 mm in postmenopausal (chemopause) woman on sonogram. the test was done because of pelvic cramping pain. Note from last visit: She is here for annual exam, is doing well. She has a past history of breast cancer in 10/02/2014, She has had a right hip pain for the past months, she has seen her PCP and is getting a bone scan soon. She also recently saw her neurologist for her MS and he did liver function tests and advised her they are elevated, she is to have a sonogram of the liver soon. She noted midline pelvic cramping pain off and on for two months, suprapubic. She is in chemopause since 2014. She is taking Tamoxifen. Susy Jimenez MD [address] [facility],[address], [place], [address], [facility], 11/25/2016 15:44:11 11/15/2017 text/html She had a sonogram showing an 8 mm endometrium last year, had an emb that showed atrophic endometrium, she has had no spotting. She still has occasional cramping off and on. She has MS, and a past history of breast cancer. Note from 2017: She is here for annual exam, is doing well. She has a past history of breast cancer in 10/02/2014, She has had a right hip pain for the past months, she has seen her PCP and is getting a bone scan soon. She also recently saw her neurologist for her MS and he did liver function tests and advised her they are elevated, she is to have a sonogram of the liver soon. She noted midline pelvic cramping pain off and on for two months, suprapubic. She is in chemopause since 2014. She is taking Tamoxifen. Susy Jimenez MD [address], [place], [address], [facility], 11/15/2017 15:31:39 OBGyn Episode No OBEpisode recorded.
== END 2024-09-10 15:50 | disposition home or self-care (01) ==
LOC: HO.HNS 13:02
PROVIDERS: PCP Nurse Practitioner Adult Health; Referring Provider Physician Assistant; Visit Provider Physician Assistant
DX: M53.3 Sacrococcygeal disorders, not elsewhere classified (principal)
CPT/HCPCS: 99204

== ENCOUNTER → 2024-09-10 13:02 | Outpatient (BNVA) | payer OTHER, SELFPAY | PROVIDERS: PCP Nurse Practitioner Adult Health; Referring Provider Physician Assistant; Visit Provider Physician Assistant | DX: M53.3 Sacrococcygeal disorders, not elsewhere classified (principal) | CPT/HCPCS: 99202 ==

== ENCOUNTER 2024-11-07 14:53 | Outpatient (AMB) | payer OTHER, SELFPAY ==
--- OUTSIDE RECORDS SUMMARY | 2024-09-13 10:00 | XMS_ITS ---
Author Organization [facility] Address [address] [place] [address] Care Team Providers Care Polisher And Buffer Name Role Phone Mattcheyenne Cintia Unavailable [phone] Encounters Encounter Location Date Provider Diagnosis [address] [address] 09/13/2024 Cintia Garcia Plan Of Treatment No Information Progress Notes * Arti CURTISeDOB: 0 (54 yo F)Acc No.[id number]:09/13/2024 Progress Notes Patient: Zena AGEE Provider: Gurmeet Garcia DPM :1970 A ge:54 Y S ex:Female Date:09/13/2024 Address:Nati [address] [facility] Subjective: * Chief Complaints: * * Medical History: Objective: * Vitals: Assessment: Plan: * Treatment: * Images: * The named appointment provid er may or may not be the originator of this progress note, and it is not deemed complete until electronically signed by the appointment provider. Sign off status: Pending * Provider: Gurmeet Garcia DPM Date: 09/13/2024 Generated for Luna kraft/Tesha/Nicolasitting on: 11/07/2024 03:16 PM EDT
--- NOTE | 2024-11-07 14:56 | A.SPINEOV_ITS ---
Intake Visit Reasons: MRI f/up Intake Note: Ms. Snider is here today to F/u on the results to her MRI. [employer] Required: No Allergies No Known Allergies Allergy (Verified 11/07/24 14:58) Assessment & Plan Assessment & Plan (1) Lumbago: Code(s): M54.50 - Low back pain, unspecified Category: Medical Plan: Zena is a pleasant 54-year-old female who comes in today for follow-up after having a lumbar spine MRI completed. To recap she was referred to our clinic for evaluation of SI joint dysfunction, with overall fairly poor response to SI joint injections. She never had lumbar spine imaging completed. She does have a history of multiple sclerosis. We reviewed her MRI imaging during this visit, which shows severe degenerative disc disease at L4-5 with Modic endplate changes at L4 and L5. There is moderate-severe bilateral foraminal stenosis at this level. We discussed how this degeneration is likely the causative agent of her low back pain. After discussion regarding conservative measures versus surgery, the patient would like to proceed with injections at L4-5 to see if this can help mitigate her symptoms before she needs surgery. I think this is a completely reasonable avenue. I will place a referral for evaluation by our colleagues in pain management for injections at L4-5. I encouraged her to call the office and update us regarding her response to the injections. Veto Chavarria MD,PhD [facility] Orders: Orders XR lumbar spine 4V min Today M54.50 - Low back pain, unspecified Referrals Pain Management Referral M54.50 - Low back pain, unspecified Coding Level of Care Code Est Pt Level 2 (90551) Diagnoses Lumbago M54.50
--- OUTSIDE RECORDS SUMMARY | 2024-11-07 15:17 | XMS_ITS | Data Portability ---
Author Organization [place] - Associates in [facility],, SUSY JIMENEZ MD Address [address] [facility] [address] [place] [address] Care Team Providers Care Case Advocate Name Role Phone SEE JONES Primary Care Provider [phone] Assessment No assessment recorded. Plan of Treatment Reminders Order Date Submit Date Provider Last Modified By Organization Details Last Modified Time Details Appointments None recorded. Lab pap test, thinprep, cervical 2017 018 [facility], [address] [facility], [place], [address], 8 15:14:12 fecal occult blood, stool 2017 018 MAURA In-Office Order, Internal Use Only DO Not Attach Compendium DO Not Attach Compendium, Do Not Delete/merge, [id number] 8 15:51:11 biopsy, endometri al 2016 017 MAURA [facility] (Centralized Electronic Ordering - All Locations), Patient Can Go To The Location Of Their Choice, [id number] 7 08:30:52 pap test, thinprep, cervical 2016 017 MAURA [facility] (Centralized Electronic Ordering - All Locations), Patient Can Go To The Location Of Their Choice, [id number] 7 13:30:44 fecal occult blood, stool 2016 017 [email or web address] 1 In-Office Order, Internal Use Only DO Not Attach Compendium DO Not Attach Compendium, Do Not Delete/merge, [id number] 7 13:49:01 pap test, thinprep, cervical 2015 016 ELGIN [facility] (Centralized Electronic Ordering - All Locations), Patient Can Go To The Location Of Their Choice, [address] 6 12:34:35 fecal occult blood, stool 2015 016 [email or web address] 1 In-Office Order, Internal Use Only DO Not Attach Compendium DO Not Attach Compendium, Do Not Delete/merge, [id number] 6 14:35:08 pap test, thinprep, cervical 2014 015 [facility], Cytopathology Service, [address] [place], [address], 5 11:31:51 chlamydia sp, culture, unspecifi ed specimen 2014 015 [facility], Cytopathology Service, [address] [place], [address], 5 07:33:35 NG DNA, PCR, genital 2014 015 [facility] [address] [place], [address], 5 08:01:09 CBC w/ auto diff 2014 015 [facility] [employer] [facility], [address] [place], [address], 5 08:26:00 testoster one, free + total, serum 2014 015 [facility], [address] [place], [address], 5 08:01:09 TSH, serum or plasma 2014 015 [facility], [address] [place], [address], 5 08:26:00 FSH (follicle -stimulat ing hormone), serum 2014 015 [facility], [address] [place], [address], 5 08:26:01 estradiol , serum 2014 015 [facility], [address] [place], [address], 5 08:26:00 fecal occult blood, stool 2014 015 [employer] In-Office Order, Internal Use Only DO Not Attach Compendium DO Not Attach Compendium, Do Not Delete/merge, [id number] 5 08:26:00 Referral None recorded. Procedures biopsy, endometri um (PROC) 2016 017 MAURA In-Office Order, Internal Use Only DO Not Attach Compendium DO Not Attach Compendium, Do Not Delete/merge, [id number] 7 15:44:18 Surgeries None recorded. Imaging MAMMO, screening , digital, bilateral 2017 018 [facility], [address], [place], [address], 9 07:55:43 MAMMO, screening , digital, bilateral 2016 017 [facility], [address], [address], [place], [address], 8 07:43:47 US, pelvis, transabdo danny + transvagi nal - 2 months of midline suprapubi c cramping pain. Prior history of breast cancer, presently in chemopaus e. Please assess for polyp or thickenin g of endometri um. 2016 017 [facility], [address], [address], [place], [address], 7 15:32:45 US, liver - elevated LFT. PAtient has prior history of breast cancer, on Tamoxifen . Also on Avonex, meds for MS. Prior cholecyst ectomy. 2016 017 [email or web address] [facility] Orders, [address], [address], [place], [address], 7 07:35:06 MAMMO, screening , digital, bilateral 2015 016 [facility] Orders, [address], [address], [place], [address], 7 11:05:50 ultrasoun d, breast - 8 mm cystic density right breast at the 8 o'clock 5 cm from nipple 2014 015 [email or web address] Imaging Orders, [address], [address], [place], [address], 5 07:24:12 MAMMO, diagnosti c, digital, bilateral - 8 mm cystic density right breast at the 8 o'clock 5 cm from nipple 2014 015 [facility] Orders, [address], [address], [place], [address], 5 13:45:14 Medication Orders None recorded. Patient TargetsNo targets recorded. Patient Instructions Encounter Date Encounter Id Patient Instructions Last Modified By Organization Details Last Modified Time 09/06/2014 [id number] secondary amenorrhea: care instructions [email or web address] Not available 09/09/2014 08:26:00 LPS 08/20=Negativ e (per pt), Mammo 02/18@ [facility] She is here as a new patient, for annual exam. She has had amenorrhea for the past [...] failure or not, and then manage as appropriate. Issues discussed, she is aware. She has not had a mammo since 02/2013, she has an 8 mm density in the right breast, 8 mm cystic density right breast [...] detail. [email or web address] Not available 09/09/2014 08:26:01 09/23/2015 [id number] She is here for annual exam. Last [...] out, nearly flunked, stays out late, is belligerent. We discussed that it would be great if she went back to see her therapist as she likes their talks, she will call today. Also discussed the benefits of joining a [...] questions answered. Not available 09/23/2015 14:35:08 10/19/2016 [id number] self breast exam education [email or web address] Not available [...] and oncologist first. She will follow up [facility] PCP concerning hip pain. She is aware [...] in detail. Not available 10/19/2016 15:13:23 11/25/2016 [id number] postmenopausal bleeding information [email or web address] Not available 11/25/2016 [...] await results. Not available 11/25/2016 15:33:59 11/15/2017 [id number] multiple scleros is (MS): care instructions [email or web address] Not available 11/15/2017 15:12:00 She had a sonogr am showing an 8 mm endometrium last year, had an emb that showed atrophic endometrium, she has had no spotting. She still has occasional cramping off and on. She has MS, and a past history of breast cancer. [facility] has not had a period since 2012, [...] Abnormal Flag Note LastModifiedBy Organization Detail LastModifiedTime 10/20/19 17 10/19/2016 fecal occul t blood , stool Occult Blood negati ve Not Available In-Office Order Internal Use Only DO Not Attach Compendium DO Not Attach Compendium, Do Not Delete/merge, [id number] 10/19/2016 13:23:40 09/23/19 16 09/23/2015 fecal occul t blood , stool Occult Blood negati ve Not Available In-Office Order Internal Use Only DO Not Attach Compendium DO Not Attach Compendium, Do Not Delete/merge, [id number] 09/23/2015 13:38:20 09/07/19 15 09/06/2014 fecal occul t blood , stool Occult Blood negati ve Not Available In-Office Order Internal Use Only DO Not Attach Compendium DO Not Attach Compendium, Do Not Delete/merge, [id number] 09/06/2014 08:53:56 09/07/19 15 09/06/2014 CBC w/ auto diff comments [facility] [address] [facility] [place] [address] [phone] Not Available [facility] [address] [place], [address], 09/07/2014 04:43:16 09/07/19 15 09/06/2014 CBC w/ auto diff WBC 8.2 x10-3 4.8-10 .8 Not Available [facility] [address] [place], [address], 09/07/2014 04:43:16 09/07/19 15 09/06/2014 CBC w/ auto diff RBC 4.5 x10-6 3.8-4. 8 Not Available [facility] [address] [place], [address], 09/07/2014 04:43:16 09/07/1909/06/2014 CBC w/ auto diff hemoglobin 12.4 g/dL 11.5-1 6.0 Not Available [facility] [address] [place], [address], 09/07/2014 04:43:16 09/07/19 15 09/06/2014 CBC w/ auto diff hematocrit 39.0 % 35-47 Not Available [facility] [address] [place], [address], 09/07/2014 04:43:16 09/07/1909/06/2014 CBC w/ auto diff MCV 86.3 fL 79-98 Not Available [facility] [address] [place], [address], 09/07/2014 04:43:16 09/07/1909/06/2014 CBC w/ auto diff MCH 27.4 pg 27-32 Not Available [facility] [address] [place], [address], 09/07/2014 04:43:16 09/07/1909/06/2014 CBC w/ auto diff MCHC 31.8 g/dL 32-37 low Not Available [facility] [address] [place], [address], 09/07/2014 04:43:16 09/07/1909/06/2014 CBC w/ auto diff RDW 14.9 % 11-15 Not Available [facility] [address] [place] [address], [address], 09/07/2014 04:43:16 09/07/1909/06/2014 CBC w/ auto diff plt count 363 x10-3 130-40 0 Not Available [facility] [address] [place], [address], 09/07/2014 04:43:16 09/07/1909/06/2014 CBC w/ auto diff mean platelet volume 10.7 fL 7-11 Not Available [facility] [address] [place], [address], 09/07/2014 04:43:16 09/07/1909/06/2014 CBC w/ auto diff neut % 59 % 41-85 Not Available [facility] [address] [place] [address], [address], 09/07/2014 04:43:16 09/07/1909/06/2014 CBC w/ auto diff lymph % 34 % 15-48 Not Available [facility] [address] [place] [address], [address], 09/07/2014 04:43:16 09/07/19 15 09/06/2014 CBC w/ auto diff mono % 6 % 0-12 Not Available [facility] [address] [place] [address], [address], 09/07/2014 04:43:16 09/07/19 15 09/06/2014 CBC w/ auto diff eos % 1 % 0-5 Not Available [facility] [address] [place] [address], [address], 09/07/2014 04:43:16 09/07/19 15 09/06/2014 CBC w/ auto diff baso % 0 % 0-2 Not Available [facility] [address] [place] [address], [address], 09/07/2014 04:43:16 09/07/19 15 09/06/2014 CBC w/ auto diff absolute neut 4.8 X10-3 /uL >1.5 Not Available [facility] [address] [place] [address], [address], 09/07/2014 04:43:16 09/07/19 15 09/06/2014 estra diol, serum comments [facility] [address] [place] [address] [facility] [place] [address] [phone] Not Available [facility] [address] [place] [address], [address], 09/07/2014 04:44:17 09/07/1909/06/2014 estra diol, serum estradiol [...] ND - 118.2 Not Available [facility] [address] [place] [address], [address], 09/07/2014 04:44:17 09/07/19 15 09/06/2014 FSH (foll icle- stimu latin g hormo ne), serum comments [facility] [address] [place] [address] [phone] Not Available [facility] [address] [place], [address], 09/07/2014 04:44:19 09/07/19 15 09/06/2014 FSH (foll [...] 1.2 - 7.8 Not Available [facility] [address] [place], [address], 09/07/2014 04:44:19 09/07/19 15 09/06/2014 testo stero ne, total , serum comments [facility] [address] [place] [address] [phone] Not Available [facility] [address] [place], [address], 09/07/2014 04:45:20 09/07/19 15 09/06/2014 testo stero ne, total , serum testosterone 47 NG/dL 14-76 Not Available [facility] [address] [place], [address], 09/07/2014 04:45:20 09/07/19 15 09/06/2014 TSH, serum or plasm a comments [facility] [address] [facility] [place] [address] [phone] Not Available [facility] [address] [place], [address], 09/07/2014 04:45:20 09/07/19 15 09/06/2014 TSH, serum or plasm a TSH 3.95 uIU/m L 0.40-4 .00 Not Available [facility] [address] [place], [address], 09/07/2014 04:45:20 09/07/19 15 09/06/2014 gener al5ca se [id number] RESUL TS OF GEN-P ROBE APTIM A COMBO 2 ASSAY Chlam ydia: NEGAT MAG N. gonor rhoea e: NEGAT MAG VICTOR M T ANTOLIN GARCIA M.D., Patho logis t (Case elect jose angel torres madelaine d 09 10 2014) CLIN[facility] INFOR MATIO N: LPS 1 YR = NEG SOURC E: ThinP rep Pap for CT/GC Gross Descr iptio n: ThinP rep Vial Recei miguelito. Physi cians KAYLYNN PALMER N /#[phone]/2 [id number] 9 Cytop athol ogy servi kisha provi ded by [facility] at the above addre ss. Not Available [facility], Cytopathology Service [address] [place], [address], 09/10/2014 15:21:33 09/07/19 15 09/06/2014 testo stero ne, free, serum comments [facility] [address] [place] [address] [phone] Not Available [facility] [address] [place], [address], 09/11/2014 06:00:16 09/07/19 15 09/06/2014 testo stero ne, free, serum free testosterone 2.6 pg/mL 0.0-7. 0 Not Available [facility] [address] [place], [address], 09/11/2014 06:00:16 09/07/19 15 09/06/2014 pap, LB [id number] ThinP rep Pap, Image d: NEGAT MAG FOR SQUAM OUS INTRA EPITH ELIAL LESIO N AND MALIG JOSE ARMANDO . Ani Tapia ams, CT( [...] [facility] at the above addre ss. Not Available [facility], Cytopathology Service [address] [facility], [place], [address], 09/11/2014 11:31:51 11/16/19 18 11/15/2017 fecal occul t blood , stool Occult Blood negati ve Not Available In-Office Order Internal Use Only DO Not Attach Compendium DO Not Attach Compendium, Do Not Delete/merge, [id number] 11/15/2017 15:00:24 09/18/19 15 09/17/2014 MAMMO , diagn ostic , digit al, bilat eral No observ ation record ed. [facility] Orders [address], [place], [address], 09/24/2014 08:07:00 09/18/19 15 09/17/2014 MAMMO , diagn ostic , digit al, bilat eral No observ ation record ed. [facility] Orders [address], [place], [address], 09/24/2014 08:07:00 09/18/19 15 09/17/2014 MAMMO , diagn ostic , digit al, bilat eral No observ ation record ed. [facility] Orders [address], [place], [address], 09/24/2014 08:07:01 09/18/19 15 09/17/2014 MAMMO , diagn ostic , digit al, bilat eral No observ ation record ed. [address] [facility] Orders [address], [place], [address], 09/17/2014 15:09:04 09/18/19 15 09/17/2014 MAMMO , diagn ostic , digit al, bilat eral No observ ation record ed. [address] [facility] Orders [address], [place], [address], 09/17/2014 15:09:04 09/24/19 15 09/23/2014 needl e core biops y, breas t, ultra sound guide d No observ ation record ed. [address] [facility] Orders [address], [place], [address], 09/23/2014 15:49:59 09/24/19 15 09/23/2014 imagi ng/di agnos tic resul t No observ ation record ed. [address] [facility] Orders [address], [place], [address], 09/23/2014 15:50:00 10/02/19 15 09/23/2014 ultra sound , breas t No observ ation record ed. [address] [facility] Orders [address], [place], [address], 10/01/2014 15:40:48 09/18/19 17 10/10/2015 MAMMO , scree chuy, digit al, bilat eral No observ ation record ed. [address] (Imaging) [address], [place], [address], 09/17/2016 11:11:00 10/28/19 17 10/27/2016 US, pelvi s, trans abdom inal + trans vagin al No observ ation record ed. [facility] [address], [place], [address], 10/29/2016 07:24:17 10/28/19 17 10/27/2016 US, pelvi s, trans abdom inal + trans vagin al No observ ation record ed. [email or web address] Not Available 2016 11:52:29 10/28/19 17 10/27/2016 US, pelvi s, trans abdom inal + trans vagin al No observ ation record ed. [facility] (Outpt Imaging) [address], [place], [address], 10/28/2016 11:30:03 10/30/19 17 10/27/2016 US, pelvi s, trans abdom inal + trans vagin al No observ ation record ed. [facility] Orders [address], [place], [address], 10/29/2016 13:30:44 11/02/19 18 11/01/2017 MAMMO , scree chuy, digit al, bilat eral No observ ation record ed. [facility] [address], [place], [address], 11/07/2017 07:56:18 Result Notes None recorded. Problems Name Problem SNOMED Code Status Onset Date Resolution Date Notes Provider Name and Address Organization Details Recorded Time Amenorrhea 39479183 Active Susy Jimenez MD [address], [place], [address], [place] - [facility], 6 14:05:48 Breast lump 69927070 Active Susy Jimenez MD [address], [place], [address], [place] - [facility], 6 14:05:48 Multiple sclerosis 37698184 Active Susy Jimenez MD [address], [place], [address], [place] - [facility], 6 14:05:48 Mammography abnormal 060283433 Active Susy Jimenez MD [address], [place], [address], [place] - [facility], 6 14:05:48 Malignant tumor of breast 572919204 Active 2016 Philomena mittal [place] - [facility], 7 15:29:39 History of malignant neoplasm of breast 322174966 Active 2017 Susy Jimenez MD [address], [place], [address], [place] - [facility], 8 15:10:38 Problem Notes None recorded. Procedures Surgical History Date Name Laterality Status Provider Name and Address Organization Details Recorded Time 11/26/19 17 Endometrial Biopsy completed Susy Jimenez MD [address], [place], [address], [place] - [facility], 11/25/2016 15:32:28 05/09/19 15 Breast Biopsy completed Malka De La Garza [place] - [facility], 09/23/2015 13:37:20 05/09/19 15 Other completed Malka De La Garza [place] - [facility], 09/23/2015 13:37:20 05/09/19 04 Other completed Malka De La Garza [place] - [facility], 09/23/2015 13:37:20 05/09/19 00 Cholecystectomy completed Philomena Cast [place] - [facility], 09/06/2014 08:49:23 Imaging Results None recorded. Procedure Notes None recorded. Medical Equipment None Reported. Allergies Allergen ID Allergen Name Allergen Category Reaction Reaction Severity Criticality Documentation Date Start Date Code Code System Note Provider Name and Address Organization Details Recorded Time 24252 Tegaderm medicatio n Not available Not available Not available 09/23/2015 41839 UNK Malka mittal [place] - [facility], 6 13:37:20 Medications Name Sig Start Date [...] Not Available No t Available Fluarix Quad 3710-7703 (PF) 60 mcg (15 mcg x 4)/0.5 mL IM syringe TO BE ADMINISTE RED BY PHARMACIS T FOR IMMUNIZAT ION active Not Available Not Available No t Available Fluarix Quad (PF) 60 mcg (15 mcg x 4)/0.5 mL IM syringe TO BE ADMINISTE RED BY PHARMACIS T FOR IMMUNIZAT ION active Not Available Not Available No t Available Vitals Date Recorded Heart rate Body weight Body mass index (BMI) Body height Systolic blood pressure Diastolic blood pressure Provider Name and Address Organization Details Last Updated DateTime 5 70 /min 895717. 59605 g 38.2 kg/m2 164.465 cm 137 mm[Hg] 71 mm[Hg] Philomena Jones in [facility], 5 08:41:36 Date Recorded Body weight Body mass index (BMI) Body height Provider Name and Address Organization Details Last Updated DateTime 09/23/2015 567256.9206 72 g 37.5 kg/m2 165.1 cm Malka Jones in [facility], 09/23/2015 13:37:20 Date Recorded Body weight Body mass index (BMI) Body height Heart rate Systolic blood pressure Diastolic blood pressure Provider Name and Address Organization Details Last Updated DateTime 7 455948. 68 g 38.3 kg/m2 165.1 cm 74 /min 150 mm[Hg] 79 mm[Hg] Malka Jones in [facility], 7 13:11:38 Date Recorded Body height Body mass index (BMI) Body weight Heart rate Systolic blood pressure Diastolic blood pressure Provider Name and Address Organization Details Last Updated DateTime 8 165.1 cm 34.6 kg/m2 69377.2 1 g 68 /min 136 mm[Hg] 80 mm[Hg] Malka Jones in [facility], 8 14:52:08 Date Recorded Body height Body mass index (BMI) Body weight Heart rate Systolic blood pressure Diastolic blood pressure Provider Name and Address Organization Details Last Updated DateTime 7 165.1 cm 38 kg/m2 081477. 78 g 69 /min 138 mm[Hg] 69 mm[Hg] Malka Frederic [place] [facility], 7 15:08:30 Social History Question Answer Notes LastModified by Organizat ion Details LastModified Time Tobacco Smoking Status Never Smoker Not Available [employer] 03/11/2020 03:19:40 What Is Your Level Of Caffeine Consumption? Occasional [id number] Information not available 03/11/2020 What Type Of Diet Are You Following? REGULAR [id number] Information not available 03/11/2020 Which Illicit Or Recreational Drugs Have You Used? None [id number] Information not available 03/11/2020 Do You Reside In Or Have You Traveled To An Area Where Ebola Virus Transmission Is Active? No [id number] Information not available 03/11/2020 Education 12 Information no t available 09/06/2014 How Many Days In The Past Year Have You Had A Heavy Drinking Consumption (4+ Female, 5+ Male)? 4 Information no t available 11/15/2017 High Number Of Sexual Partners No Information not available 10/19/2016 To Which Gender Do You Self-identify? Female Information not available 10/19/2016 Marital Status Single Informatio n not available 09/06/2014 What Was The Date Of Your Most Recent Tobacco Screening? 11/15/2017 [id number] Information not available 03/11/2020 Are You Sexually Active? Yes [id number] Information not available 03/11/2020 How Much Tobacco Do You Smoke? No [id number] Information not available 03/11/2020 General Stress Level High Information not available 10/19/2016 How Many Years Have You Smoked Tobacco? 0 [id number] Information not available 03/11/2020 Have You Recently (within The Last 12 Weeks, Or During A Current ) Traveled To Or Lived In A Zika-affected Area? No Information not available 10/19/2016 Sex: Unknown Functional Status Question Answer Note LastModified by Organizat ion Details LastModified Time What is your level of alcohol consumption? Occasional [id number] Information not available 03/11/2020 What is your occupation? [employer] [id number] Information not available 03/11/2020 What is your exercise level? None [id number] Information not available 03/11/2020 Mental Status None recorded. Family History Relationship Description Onset Age of this Age Resolved Age Notes LastModified by Organization Details LastModified Time Father Malignant hypertension Not available 0 09/23/2015 13:49:55 Mother Alzheimer's disease Not available 09/06 13:49:55 Medical History Condition Response Anesthesia complications N High Blood Pressure N Candidate for MyRisk panel N Autoimmune Condition N Kidney or Bladder Problems N Thyroid Problems N Depression N Lung Disease N GI Problems N Defects or Inherited Disease N Anemia N History of Ovarian Cancer N History of Breast Cancer Y VERONICA exposure N BRCA testing in past Y Osteopenia N Psychiatric Illness N Anxiety Disorder N Diabetes N Arthritis N Headaches or Migraines Y Infertility N Asthma N History of Cancer N Endometriosis N Hepatitis N Heart Disease N Hypertension N Osteoporosis N [...] split virus, trivalent, preservative 4 completed [place] [facility], 09/06/2014 08:45:16 Influenza, split virus, trivalent, preservative 5 completed [place] in [facility], 09/23/2015 13:37:20 Influenza, split virus, quadrivalent, preservative 6 completed IGOR [place] in [facility], 10/19/2016 13:15:34 Influenza, split virus, quadrivalent, preservative 7 completed [place] in [facility], 11/15/2017 14:57:11 Tdap 7 completed Malka mittal [place] - [place] [facility], 11/15/2017 14:57:30 Past Encounters Encounter ID Performer Location Encounter Start Date Encounter Closed Date Diagnosis/Indication Diagnosis SNOMED-CT Code Diagnosis ICD10 Code Diagnosis Note [id number] MD SUSY Carbajal MD [address] [facility] [place] [address] 09/06/2014 08:30:20 09/06/2014 14:04:04 Specialized medical examination [id number] Screening for malignant neoplasm of rectum 374338520 Screening mammography [id number] Amenorrhea [id number] Breast lump [id number] Multiple sclerosis [id number] MD SUSY Carbajal MD [address] [facility] [place] [address] 09/23/2015 13:18:44 09/23/2015 15:52:27 Specialized medical examination [id number] Z01.419 Screening for malignant neoplasm of rectum 347003081 Z12.12 Screening mammography 24 239179 Z12.31 [id number] MD SUSY Carbajal MD [address] [facility] [place] [address] 10/19/2016 13:04:30 10/19/2016 15:30:13 Specialized medical examination [id number] Z01.419 Screening for malignant neoplasm of rectum [id number] Z12.12 Screening mammography 24 241017 Z12.31 Pain in pelvis 89052452 R10.2 Liver func tion tests outside reference range 604637620 R94.5 [id number] MD SUSY Carbajal MD [address] [facility] [place] [address] 11/25/2016 15:04:32 11/25/2016 15:47:49 Endometrium thickened [id number] R93.8 [id number] MD SUSY Carbajal MD [address] [facility] [place] [address] 11/15/2017 14:47:40 11/15/2017 15:47:52 Specialized medical examination [id number] Z01.419 Screening for malignant neoplasm of rectum 670651127 Z12.12 Screening mammography 24 890610 Z12.31 Multiple sclerosis 61935 007 G35 History of malignant neoplasm of breast [id number] Z85.3 Health Concerns Section Related Observation LastModified by Organization Detai ls LastModified Time None Recorded Concern Status LastModified by Organization Details LastModified Time None Recorded Advance Directives Directive None Recorded Payers Insurance Date Sequence Insurance Name Policy Number Policy Lomeli Covered Member ID Lomeli Member ID Guarantor Name 08/16/[address] [place] [address] [id number] Zena [place] [id number] Zena [place] Notes Date Note Type Note Provider Name [...] is presently ILIA. Susy Jimenez MD [address] [facility],[address], [place], [address], [place] [facility], [...] is taking Tamoxifen. Susy Jimenez MD [address], [place], [address], [facility], 11/25/2016 15:44:11 11/15/2017 text/html She [...] is taking Tamoxifen. Susy Jimenez MD [address], [place], [address], [place] - [facility], 11/15/2017 15:31:39 OBGyn Episode No OBEpisode recorded.
== END 2024-11-07 15:22 | disposition home or self-care (01) ==
LOC: HO.HNS 14:54
PROVIDERS: PCP Nurse Practitioner Adult Health; Visit Provider Physician Assistant
DX: M54.50 Low back pain, unspecified (principal)
CPT/HCPCS: 99212

== ENCOUNTER 2024-11-07 14:53 | Outpatient (REF) | payer OTHER, SELFPAY ==
--- NOTE | ~2024-11-07 | XR_ITS ---
Exam: 4 view lumbar spine. INDICATION: Low back pain. AP, and lateral: Flexion, neutral, and extension view x-rays of the lumbar spine. Prior: None FINDINGS: There are clips in upper quadrant likely from cholecystectomy. Surgical suture line is seen in left of midline in the upper quadrant. There is moderate stool throughout the colon. There is 13 degrees convex right curvature of the thoracal lumbar spine. L5-6: Moderate disc space narrowing, endplate sclerosis and osteophytes with mild facet arthropathy. With flexion and extension, there is no sign of instability. XR/XR lumbar spine 4V min Impression: Moderate degenerative disc disease at L5-6. No instability. Mild scoliosis. Electronically signed by: Yusuf Penaloza MD 11/07/2024 06:00 PM EDT
== END 2024-11-07 14:54 | disposition home or self-care (01) ==
LOC: HO.HOSX 14:53
PROVIDERS: PCP Nurse Practitioner Adult Health; Visit Provider Physician Assistant
DX: M51.360 Other intervertebral disc degeneration, lumbar region with discogenic back pain only (principal); M41.86 Other forms of scoliosis, lumbar region
CPT/HCPCS: 72110; 99212

== ENCOUNTER → 2024-11-07 15:27 | Outpatient (BNV) | payer OTHER, SELFPAY | PROVIDERS: PCP Nurse Practitioner Adult Health; Visit Provider Radiology Diagnostic Radiology | DX: M51.362 Other intervertebral disc degeneration, lumbar region with discogenic back pain and lower extremity pain (principal) | CPT/HCPCS: 72110 ==

== ENCOUNTER 2025-01-02 12:58 | Outpatient (AMB) | payer OTHER, SELFPAY ==
--- OUTSIDE RECORDS SUMMARY | 2024-09-13 10:00 | XMS_ITS ---
[facility] Address [address] [place] [id number] Care Team Providers Care Ob/Gyn Doctor Name Role Phone Mattcheyenne Cintia Unavailable [phone] Encounters Encounter Location Date Provider Diagnosis [address] [id number] 09/13/2024 Cintia Garcia Plan Of Treatment No Information Progress Notes * Arti CURTISeDOB: 0 (54 yo F)Acc No.[id number]:09/13/2024 Progress Notes Patient: Zena AGEE Provider: Gurmeet Garcia DPM :1970 A ge:54 Y S ex:Female Date:09/13/2024 Address:[address] [facility] Subjective: * Chief Complaints: * * Medical History: Objective: * Vitals: Assessment: Plan: * Treatment: * Images: * The named appointment provid er may or may not be the originator of this progress note, and it is not deemed complete until electronically signed by the appointment provider. Sign off status: Pending * Provider: Gurmeet Garcia DPM Date: 09/13/2024 Generated for Luna kraft/Tesha/eTalfreditosmitting on: 0 01/02/2025 01:25 PM EDT
[2025-01-02 13:04] VITALS: BP 121/76; PULSE 77; RESP 18; O2SAT 98; BMI 29.0
--- NOTE | 2025-01-02 13:04 | A.OFFVIS_ITS ---
Vital Signs 01/02/25 13:04 Height 5 ft 4 in Weight 169 lb BMI 29.0 BP 121/76 Blood Pressure Location Lt brachial Position Sitting Respiration 18 Pulse 77 Pulse Source Pulse Oximeter Pulse Oximetry (%) 98 Intake Visit Reasons: Low Back Pain, See MRI Control Room Operator Required: No Allergies No Known Allergies Allergy (Verified 01/02/25 13:06) HPI Comments Details: Zena is very pleasant 54 years old female who presents in my office with complains on severe pain in the lower back ranging from 9 to 10/10 on regular basis with complaining on pain aggravated by prolonged sitting flexing forward and lying down. She reports throbbing pain in the back. In fact today in my office she was not able to sit with me throughout interview and she needed to stand up to alleviate her pain. She is unable to sleep normally because of her pain can not do activities of daily living she can take care of herself she can not function normally. She is on permanent disability she is suffering from multiple sclerosis. Movements aggravate her pain application of cold and heat make her pain slightly better. She tried NSAIDs for her pain and baclofen. It gives her minimal pain relief. Also taking magnesium which helps her pain minimally. She tried physical therapy which aggravated her pain. In terms of tissue damage he reports her pain as pulsing, throbbing, pounding, tiring, exhausting, sickening, suffocating, tight, squeezing, tearing sensation. She had an MRI of the lumbar spine available for my attention on her cell phone. She had Modic type 1 changes at L4-5 vertebras, it possibly slight Modic type 2 changes at the L3. She also has hemangioma at S1. Extensive physical therapy and home exercise program did not alleviate patient's pain. She never had any injections in the past. Her past medical history significant for MS, arthritis, history of headaches and fatigue. Past surgical history she was diagnose with breast cancer in 2014. She had lumpectomy and lymph node biopsy, she had chemotherapy and radiation therapy in the same year. She had carpal tunnel 2016, she had hiatal hernia repair and gastric sleeve surgery in 2024. She also had cholecystectomy in 2005. She denies smoking cigarettes admits rare consumption of alcohol drinks 1-2 cups of coffee a day and denies recreational drugs. Review of Systems Const All systems reviewed & are unremarkable except as noted in HPI and below ENT Reports Normal hearing present Neuro Reports Normal hearing present, Denies Abnormal speech present, Denies confusion and Denies Sensory deficit (Neuro) Psych Denies confusion Physical Exam Vital Signs: Last Vital Signs Pulse 77 01/02/25 13:04 Resp 18 01/02/25 13:04 BP 121/76 01/02/25 13:04 Pulse Ox 98 01/02/25 13:04 BMI result Body Mass Index 29.0 Const General: no acute distress; No confusion Nutritional Appearance: average body habitus and well nourished Orientation/consciousness: patient oriented x3 and No confusion Eyes General: appearance normal, both eyes and all related structures Pupils: Equal, round and reactive pupils present EOM: EOMs intact bilaterally Neck Neck: Yes full ROM Chest Chest palpation & inspection: normal inspection of the chest Resp Effort & Inspection: normal respiratory effort, able to speak in complete sentences, normal respiratory pattern, no audible wheezes and no cough Cardio Jugular venous distension: no JVD GI Inspection: Yes normal to inspection Back/Spine/Pelvis Other: Flexing forward aggravate her pain, flexing backwards alleviates her pain. Prolonged sitting aggravates her pain. SLR is positive on the left and negative on the right. Lasegue test is positive on the left as well and equivocal on the right.. Valsalva maneuver is positive for pain increase in the back. Manuel test is equivocal on the left and negative on the right. Pelvic compression test is negative bilaterally. Able to stand on bilateral tiptoes and bilateral heels. Reports numbness in bilateral lower extremities however she always considered that numbness related to her multiple sclerosis. Neuro General: patient oriented x3, gait normal and No confusion Cranial nerves: Yes CN's II-XII intact bilaterally, Yes Equal, round and reactive pupils present, Yes Normal hearing present and Yes Ability to bilaterally elevate shoulders present Speech: No Abnormal speech present Gait exam (Neuro): Normal gait present Motor exam (neuro): 5/5 motor strength present throughout Sensory Exam: No Sensory deficit (Neuro) Extrem General: No pedal edema Psych Speech and movement: Normal speech and movement present Affect: normal affect Attitude: cooperative Thought process: Normal thought process present Thought content: Normal thought content present Insight: Good insight present (Psych) Judgement: Good judgement present (Psych) Assessment & Plan Assessment & Plan (1) Vertebrogenic low back pain: Code(s): M54.51 - Vertebrogenic low back pain Category: Medical (2) Disc degeneration, lumbar: Code(s): M51.369 - Other intervertebral disc degeneration, lumbar region without mention of lumbar back pain or lower extremity pain Category: Medical (3) Radiculopathy, lumbar region: Code(s): M54.16 - Radiculopathy, lumbar region Category: Medical (4) Chronic pain syndrome: Code(s): G89.4 - Chronic pain syndrome Category: Medical Plan I will start treatment of this patient with scheduling her for BVN RFA intracept L3, L4, L5. This procedure will be done under general anesthesia. Risks and benefits were carefully explained to the patient. The patient expressed und erstanding.. Patient Instructions: I here by testify that I spent 45 minutes in conversation of the this patient as well as planning her care and organizing this note. Coding Level of Care Code New Pt Level 4 (08880) Diagnoses Vertebrogenic low back pain M54.51 Disc degeneration, lumbar M51.369 Radiculopathy, lumbar region M54.16 Chronic pain syndrome G89.4
--- OUTSIDE RECORDS SUMMARY | 2025-01-02 13:25 | XMS_ITS | Patient Health Record ---
Author Organization [facility] Address [address] [place] [address] Care Team Providers Care Repairing Calibrator Name Role Phone Cintia Garcia Unavailable [phone] Reason For Referral No Information Encounters Encounter Location Date Provider [facility] [address] [place] [address] 07/10/2024 Cintia Garcia [facility] [address] [place] [address] 08/14/2024 Cintia Garcia Plan Of Treatment No Information Insurance Providers Payer Name Payer Address Payer Phone Subscriber Number Group Number Insured Name Patient Relationship to Insured Coverage Start Date Coverage End Date [facility] [employer] Claims [address] [place] [id number] Zena Snider Self - patient is the insured
== END 2025-01-02 13:30 | disposition home or self-care (01) ==
LOC: HO.PMC 12:59
PROVIDERS: PCP Nurse Practitioner Adult Health; Visit Provider Anesthesiology
DX: M54.51 Vertebrogenic low back pain (principal); M51.369 Other intervertebral disc degeneration, lumbar region without mention of lumbar back pain or lower extremity pain; M54.16 Radiculopathy, lumbar region; G89.4 Chronic pain syndrome
CPT/HCPCS: 99204

== ENCOUNTER → 2025-01-02 12:58 | Outpatient (BNVA) | payer OTHER, SELFPAY | PROVIDERS: PCP Nurse Practitioner Adult Health; Visit Provider Anesthesiology | DX: M54.51 Vertebrogenic low back pain (principal); G35 Multiple sclerosis; M51.369 Other intervertebral disc degeneration, lumbar region without mention of lumbar back pain or lower extremity pain; M54.16 Radiculopathy, lumbar region; G89.4 Chronic pain syndrome; Z73.6 Limitation of activities due to disability | CPT/HCPCS: 99202 ==